=== PATIENT | female | born 1950 | race Asian ===

== ENCOUNTER 2019-04-17 14:17 | Emergency (ER) | payer MEDICARE, OTHER ==
[~2019-04-17] VITALS: Ht 152.4 cm; Wt 56.7 kg
[2019-04-17 14:21] VITALS: BP 129/76
[2019-04-17] MEDS ORDERED: IBUPROFEN600 MG ORAL (14:57)
[2019-04-17] MEDS ORDERED: NEURONTIN400 MG ORAL (14:57)
[2019-04-17] MEDS ORDERED: VALACYCLOVIR500 MG ORAL (14:57)
[2019-04-17] MEDS: valACYclovir HCL 500mg tab ORAL ONE ×2 (15:05)
[2019-04-17 15:08] VITALS: BP 129/76
--- NOTE | 2019-04-17 19:44 | Emergency Room Report ---
History of Present Illness General Chief Complaint: Pain Source: Patient Present Illness HPI Patient presents with complaints of pain to her left lower leg Complains of pain at different areas involving the calf area upper thigh Denies any fevers or chills denies any trauma denies any abdominal pain The pain is sharp and tingling in nature Denies any recent travel patient had been doing acupuncture and cupping in the areas without any relief Allergies: Coded Allergies: No Known Allergies (Unverified , 04/17/19) Patient History Past Medical History: see triage record Pertinent Family History: none Now: No Reviewed Nursing Documentation: PMH: Agreed; PSxH: Agreed Nursing Documentation-PMH Past Medical History: No Stated History Hx Cardiac Problems: Yes - High cholesterol Review of Systems All Other Systems: negative except mentioned in HPI Physical Exam Vital Signs Date Time Temp Pulse Resp B/P (MAP) Pulse Ox O2 Delivery O2 Flow Rate FiO2 04/17/19 14:21 98.8 87 20 129/76 (93) 95 Room Air Sp02 EP Interpretation: reviewed, normal General Appearance: well appearing, no apparent distress Head: normocephalic, atraumatic Eyes: bilateral eye PERRL, bilateral eye EOMI ENT: normal pharynx, no angioedema Neck: supple Respiratory: lungs clear Cardiovascular #1: regular rate, rhythm, no edema Gastrointestinal: non tender, soft Musculoskeletal: normal inspection Neurologic: alert, oriented x3 Psychiatric: normal inspection Skin: other - Several areas involving the left upper inner thigh area small blister formation appears to be in dermatomal fashion, secondarily there were multiple areas of small needle russell, these were apparently from acupuncture no obvious secondary cellulitic findings no obvious open wounds Lymphatic: no adenopathy Medical Decision Making Diagnostic Impression: Primary Impression: shingles ER Course The specific areas in question appeared to be consistent with shingles multiple other differentials and consideration Patient otherwise does not appear septic or toxic and will have initial conservative outpatient trial Last Vital Signs Date Time Temp Pulse Resp B/P (MAP) Pulse Ox O2 Delivery O2 Flow Rate FiO2 04/17/19 15:08 98.8 87 20 129/76 95 Room Air Status: improved Disposition: HOME, SELF-CARE Condition: Improved Scripts Ibuprofen* (MOTRIN*) 600 Mg Tablet 600 MG ORAL Q8H PRN for For Pain, #20 TAB 0 Refills Prov: Ge Dickson DO 04/17/19 Gabapentin* (NEURONTIN*) 400 Mg Capsule 400 MG ORAL THREE TIMES A DAY, #15 CAP 0 Refills Prov: Ge Dickson DO 04/17/19 Valacyclovir Hcl* (VALTREX*) 500 Mg Tablet 1000 MG ORAL TID for 7 Days, TAB Prov: Ge Dickson DO 04/17/19 Referrals: Rodrick Monk MD (PCP) Patient Instructions: Cadence, [id number] Additional Instructions: Patient is provided with the discharge instructions notified to follow up with primary doctor in the next 2-3 days otherwise return to the er with any worsening symptoms. Please note that this report is being documented using Eloqu[employer] technology. This can lead to erroneous entry secondary to incorrect interpretation by the dictating instrument. Ge Dickson DO Apr 17, 2019 19:44
== END 2019-04-17 15:08 | disposition home or self-care (01) ==
LOC: EMR 14:41
DX: B02.9 Zoster without complications (principal)
CPT/HCPCS: 99282

== ENCOUNTER 2020-02-12 15:53 | Inpatient (IN) | payer MEDICARE, OTHER ==
[~2020-02-12] VITALS: Ht 154.9 cm; Wt 65.8 kg
[~2020-02-12 15:53] MED LIST: IBUPROFEN600 MG ORAL; NEURONTIN400 MG ORAL; VALACYCLOVIR500 MG ORAL
[2020-02-12 16:10] VITALS: BP 132/74
--- NOTE | 2020-02-12 16:37 | Emergency Room Report ---
History of Present Illness General Chief Complaint: Chest Pain Source: Patient Present Illness HPI Disclaimer: Please note that this report is being documented using Kanjoy[employer] technology. This can lead to erroneous entry secondary to incorrect interpretation by the dictating instrument. HPI: 69-year-old female history of prediabetes presents for evaluation of chest pain. Symptoms have been intermittent for the past 7 days. Cannot recall specific injury but she is complaining of pain in the right lower chest wall. Pain is exacerbated by standing up from a seated position and relieved by laying down. Denies associated shortness of breath but reports fatigue and feels that her legs are heavy. No known history of CHF or other cardiac disease. Non-smoker. Currently her pain is 1/10 but is worse when the chest wall is palpated. Is not exacerbated with bending or twisting motion. Patient was sent over by her PMD after an outpatient visit today. She denies abdominal pain, nausea, vomiting, diarrhea, dysuria, hematuria, problems with her liver or kidney in the past. PMH: Prediabetes PSH: Cholecystectomy Allergies: None reported Social Hx: None reported Allergies: Coded Allergies: No Known Allergies (Unverified , 04/17/19) COVID-19 Screening Contact w/high risk pt: No Recent Travel to affected area: No Experienced COVID-19 symptoms?: No COVID-19 Testing performed CLASSIFIED AD CLERK: No Nursing Documentation-PMH Past Medical History: No History, Except For Hx Cardiac Problems: Yes - High cholesterol Review of Systems All Other Systems: negative except mentioned in HPI Physical Exam Vital Signs Date Time Temp Pulse Resp B/P (MAP) Pulse Ox O2 Delivery O2 Flow Rate FiO2 02/12/20 16:08 98.4 66 16 132/74 (93) 96 Room Air General: Awake and alert, no acute distress HEENT: NC/AT. EOMI. Neck: Supple, trachea midline Chest Wall: Tender palpation in the right midaxillary line, lower ribs, no obvious deformity or palpable step-off Cardiovascular: RRR. S1 and S2 normal. No murmur appreciated Resp: Normal work of breathing. No cough, wheezing or crackles appreciated Abdomen: Abdomen is soft, nondistended. Nontender Skin: Intact. No abrasions, laceration or rash over the exposed skin MSK: Normal tone and bulk. Moving all extremities. No obvious deformity. Neuro: Awake and alert. Mentating appropriately. Medical Decision Making Diagnostic Impression: Primary Impression: Chest pain ER Course 69-year-old female presenting for evaluation of chest pain intermittently for 1 week. Differential includes was not limited to musculoskeletal chest pain, occult injury, contusion, rib fracture, bronchitis, pneumonitis, pneumonia, viral syndrome, ACS, arrhythmia, atypical chest pain, GERD, biliary colic, pyelonephritis, renal dysfunction to name a few. Will obtain broad labs, EKG, chest x-ray. She is in no discomfort at this time and resting stable vital signs. Laboratory Tests Test 02/12/20 16:45 White Blood Count 5.2 K/UL (4.8-10.8) Red Blood Count 3.64 M/UL (4.20-5.40) L Hemoglobin 11.6 G/DL (12.0-16.0) L Hematocrit 36.7 % (37.0-47.0) L Mean Corpuscular Volume 101 FL (80-99) H Mean Corpuscular Hemoglobin 31.8 PG (27.0-31.0) H Mean Corpuscular Hemoglobin Concent 31.5 G/DL (32.0-36.0) L Red Cell Distribution Width 12.6 % (11.6-14.8) Platelet Count 192 K/UL (150-450) Mean Platelet Volume 7.8 FL (6.5-10.1) Neutrophils (%) (Auto) 57.9 % (45.0-75.0) Lymphocytes (%) (Auto) 34.3 % (20.0-45.0) Monocytes (%) (Auto) 5.4 % (1.0-10.0) Eosinophils (%) (Auto) 1.4 % (0.0-3.0) Basophils (%) (Auto) 1.0 % (0.0-2.0) Urine Color Pale yellow Urine Appearance Clear Urine pH 5 (4.5-8.0) Urine Specific [place] 1.015 (1.005-1.035) Urine Protein Negative (NEGATIVE) Urine Glucose (UA) Negative (NEGATIVE) Urine Ketones Negative (NEGATIVE) Urine Blood Negative (NEGATIVE) Urine Nitrite Negative (NEGATIVE) Urine Bilirubin Negative (NEGATIVE) Urine Urobilinogen Normal MG/DL (0.0-1.0) Urine Leukocyte Esterase Negative (NEGATIVE) Sodium Level 144 MMOL/L (136-145) Potassium Level 3.6 MMOL/L (3.5-5.1) Chloride Level 107 MMOL/L (98-107) Carbon Dioxide Level 23 MMOL/L (21-32) Anion Gap 14 mmol/L (5-15) Blood Urea Nitrogen 24 mg/dL (7-18) H Creatinine 0.7 MG/DL (0.55-1.30) Estimated Glomerular Filtration Rate > 60 mL/min (>60) Glucose Level 103 MG/DL (74-106) Calcium Level 8.2 MG/DL (8.5-10.1) L Total Bilirubin 0.3 MG/DL (0.2-1.0) Aspartate Amino Transferase (AST) 35 U/L (15-37) Alanine Aminotransferase (ALT) 40 U/L (12-78) Alkaline Phosphatase 66 U/L (46-116) Troponin I 0.002 ng/mL (0.000-0.056) Pro-B-Type Natriuretic Peptide 112 pg/mL (0-125) Total Protein 7.0 G/DL (6.4-8.2) Albumin 3.5 G/DL (3.4-5.0) Globulin 3.5 g/dL Albumin/Globulin Ratio 1.0 (1.0-2.7) EKG Diagnostic Results EKG Time: 16:40 Rate: bradycardiac Rhythm: NSR ST Segments: no acute changes Other Impression Sinus rhythm, bradycardic rate, normal axis, normal intervals, no ST segment changes. Rhythm Strip Diag. Results Rhythm Strip Time: 16:40 EP Interpretation: yes Rate: 50s Rhythm: NSR, no PVC's, no ectopy Chest X-Ray Diagnostic Results Chest X-Ray Diagnostic Results : Chest X-Ray Ordered: Yes # of Views/Limited/Complete: 1 View Indication: Chest Pain EP Interpretation: Yes Interpretation: no consolidation, no effusion, no pneumothorax, no acute cardiopulmonary disease Impression: No acute disease Electronically Signed by: Electronically signed by Dr. Luca Gutiérrez Reevaluation Time: 20:01 Last Vital Signs Date Time Temp Pulse Resp B/P (MAP) Pulse Ox O2 Delivery O2 Flow Rate FiO2 02/12/20 16:08 98.4 66 16 132/74 (93) 96 Room Air Reevaluation Impression EKG is nonischemic, chest x-ray does not show obvious infiltrate. Labs including initial troponin are negative. Patient remains chest pain-free. Discussed with the patient's primary doctor who would like her admitted for cardiac work-up. Per PMD request the patient will be admitted to Dr. Ramirez who has accepted. Disposition: ADMITTED INPATIENT Condition: Serious Luca Gutiérrez MD February 12, 2020 16:37
--- NOTE | 2020-02-12 16:57 | Diagnostic Imaging Report ---
Indication: Chest pain Technique: XRAY Chest 1v Comparison: None Findings: Heart size within the upper limits for normal. Mediastinal contours are sharp. There is no focal airspace consolidation. No pleural effusion, pneumothorax or radiographic evidence suggest pulmonary edema. There are degenerative changes in the spine. No acute osseous abnormality. Surgical clips noted in the right upper quadrant. Impression: No radiographic evidence of acute cardiopulmonary disease.
[2020-02-12 17:08] LABS: EOSINOPHILS % (AUTO) 1.4 % (0.0-3.0); HEMATOCRIT 36.7 % (37.0-47.0); HEMOGLOBIN 11.6 G/DL (12.0-16.0); LYMPHOCYTES % (AUTO) 34.3 % (20.0-45.0); MEAN CORPUSCULAR VOLUME 101 FL (80-99); MONOCYTES % (AUTO) 5.4 % (1.0-10.0); NEUTROPHILS % (AUTO) 57.9 % (45.0-75.0); PLATELET COUNT 192 K/UL (150-450); RED BLOOD COUNT 3.64 M/UL (4.20-5.40); RED CELL DISTRIBUTION WIDTH 12.6 % (11.6-14.8); WHITE BLOOD COUNT 5.2 K/UL (4.8-10.8)
[2020-02-12 17:17] LABS: APPEARANCE,URINE CLEAR; BILIRUBIN, URINE NEGATIVE (NEGATIVE); COLOR,URINE PALE YELLOW; GLUCOSE, URINE (UA) NEGATIVE (NEGATIVE); KETONES,URINE NEGATIVE (NEGATIVE); LEUKOCYTE ESTERASE ,URINE NEGATIVE (NEGATIVE); NITRITE,URINE NEGATIVE (NEGATIVE); PH,URINE 5 (4.5-8.0); PROTEIN,URINE NEGATIVE (NEGATIVE); UROBILINOGEN,URINE NORMAL MG/DL (0.0-1.0)
[2020-02-12 17:19] LABS: ANION GAP 14 mmol/L (5-15); BLOOD UREA NITROGEN 24 mg/dL (7-18); CALCIUM 8.2 MG/DL (8.5-10.1); CARBON DIOXIDE 23 MMOL/L (21-32); CHLORIDE 107 MMOL/L (98-107); CREATININE 0.7 MG/DL (0.55-1.30); POTASSIUM 3.6 MMOL/L (3.5-5.1); SODIUM 144 MMOL/L (136-145)
[2020-02-12 17:31] LABS: ALANINE AMINOTRANSFERASE 40 U/L (12-78); ALBUMIN 3.5 G/DL (3.4-5.0); ALKALINE PHOSPHATASE 66 U/L (46-116); ASPARTATE AMINO TRANSFERASE 35 U/L (15-37); BILIRUBIN,TOTAL 0.3 MG/DL (0.2-1.0)
[2020-02-12 18:00] VITALS: BP 124/61
[2020-02-12 21:50] VITALS: BP 115/69
[2020-02-12] MEDS ORDERED: Zolpidem 5mg tab ORAL PRN (23:30)
[2020-02-13] VITALS: BP 109/56
[2020-02-13 04:00] VITALS: BP 110/61
[2020-02-13 06:07] LABS: BASOPHILS % (AUTO) 0.9 % (0.0-2.0); EOSINOPHILS % (AUTO) 2.3 % (0.0-3.0); HEMATOCRIT 34.2 % (37.0-47.0); HEMOGLOBIN 11.8 G/DL (12.0-16.0); LYMPHOCYTES % (AUTO) 43.7 % (20.0-45.0); MEAN CORPUSCULAR VOLUME 93 FL (80-99); MONOCYTES % (AUTO) 7.5 % (1.0-10.0); NEUTROPHILS % (AUTO) 45.6 % (45.0-75.0); PLATELET COUNT 208 K/UL (150-450); RED BLOOD COUNT 3.66 M/UL (4.20-5.40); RED CELL DISTRIBUTION WIDTH 11.1 % (11.6-14.8); WHITE BLOOD COUNT 3.7 K/UL (4.8-10.8)
[2020-02-13 06:13] LABS: ANION GAP 6 mmol/L (5-15); BLOOD UREA NITROGEN 18 mg/dL (7-18); CALCIUM 8.3 MG/DL (8.5-10.1); CARBON DIOXIDE 28 MMOL/L (21-32); CHLORIDE 110 MMOL/L (98-107); CREATININE 0.7 MG/DL (0.55-1.30); POTASSIUM 3.7 MMOL/L (3.5-5.1); SODIUM 144 MMOL/L (136-145)
[2020-02-13 08:00] VITALS: BP 112/71
[2020-02-13] MEDS: Enoxaparin 40mg Inj SUBQ SCH ×2 (09:11→09:12)
[2020-02-13 12:00] VITALS: BP 111/71
--- NOTE | 2020-02-13 13:14 | History and Physical Report ---
DATE OF ADMISSION: 02/12/2020 DATE AND TIME SEEN: 02/13/2020 at 9 a.m. CONSULTANTS: 1. Rodrick Monk MD. 2. Nick Spears MD. CHIEF COMPLAINT: Chest pain. BRIEF HISTORY: This is a 69-year-old female, who presented to [facility] last night with history of intermittent chest pain for seven days. No shortness of breath. No nausea. No loss of consciousness. The patient was diagnosed with the above, admitted to telemetry for further care. Currently, sleeping in bed, not talking much. REVIEW OF SYSTEMS: Unavailable. PAST MEDICAL HISTORY: From chart, has prediabetes. PAST SURGICAL HISTORY: Cholecystectomy. MEDICATIONS: Include enoxaparin, Zofran, and Tylenol. ALLERGIES: Denies. SOCIAL HISTORY: No smoking. No alcohol. No intravenous drug abuse. FAMILY HISTORY: Noncontributory. PHYSICAL EXAMINATION: GENERAL: Sleeping in bed, not talking much. VITAL SIGNS: Temperature 96, pulse 54, respirations 16, blood pressure 112/71. CARDIOVASCULAR: Distant without murmur. LUNGS: Distant and clear. ABDOMEN: Bowel sound positive. Nontender. Nondistended. EXTREMITIES: No cyanosis, clubbing or edema. NEUROLOGIC: The patient is sleeping in bed currently. LABORATORY AND DIAGNOSTIC DATA: Labs at this time show white count 3.7, hemoglobin and hematocrit 11/34, platelets 208. BMP shows chloride 110, calcium 8.3. Troponin 0.002 and 0.000. Urinalysis is negative. ASSESSMENT: 1. Chest pain. 2. Anemia. 3. Leukopenia. 4. Prediabetes. PLAN: Cardiology followup. Troponin q.8 h. x3. EKG in the morning. Pain control. Blood sugar control. Hematology followup. Dietary followup. CBC and BMP in the morning. PT and dietary evaluation. Matthew Ramirez D.O. DR: GADIEL JOB#: [id number] CC:
[2020-02-13 16:00] VITALS: BP 101/63
--- NOTE | 2020-02-13 16:17 | Cardiology Progress Note ---
Assessment/Plan Assessment/Plan The patient is seen and examined, full consult note is dictated. Objective Last 24 Hour Vital Signs Date Time Temp Pulse Resp B/P (MAP) Pulse Ox O2 Delivery O2 Flow Rate FiO2 02/13/20 12:00 61 02/13/20 12:00 99.5 65 18 111/71 (84) 95 02/13/20 09:00 Room Air 02/13/20 08:00 96.3 54 16 112/71 (85) 95 02/13/20 08:00 66 02/13/20 04:00 53 02/13/20 04:00 97.6 61 16 110/61 (77) 96 02/13/20 00:00 51 02/13/20 00:00 97.3 58 16 109/56 (73) 95 02/12/20 22:13 Room Air 02/12/20 21:50 97.6 58 16 115/69 (84) 98 02/12/20 21:45 98.4 60 14 124/61 98 Room Air 02/12/20 18:00 98.4 60 14 124/61 98 Room Air Intake and Output 02/12/20 02/13/20 19:00 07:00 Intake Total 600 ml Balance 600 ml Intake Oral 600 ml # Voids 2 Laboratory Tests Test 02/12/20 16:45 02/13/20 05:00 02/13/20 10:05 02/13/20 14:10 White Blood Count 5.2 K/UL (4.8-10.8) 3.7 K/UL (4.8-10.8) L Red Blood Count 3.64 M/UL (4.20-5.40) L 3.66 M/UL (4.20-5.40) L Hemoglobin 11.6 G/DL (12.0-16.0) L 11.8 G/DL (12.0-16.0) L Hematocrit 36.7 % (37.0-47.0) L 34.2 % (37.0-47.0) L Mean Corpuscular Volume 101 FL (80-99) H 93 FL (80-99) Mean Corpuscular Hemoglobin 31.8 PG (27.0-31.0) H 32.3 PG (27.0-31.0) H Mean Corpuscular Hemoglobin Concent 31.5 G/DL (32.0-36.0) L 34.6 G/DL (32.0-36.0) Red Cell Distribution Width 12.6 % (11.6-14.8) 11.1 % (11.6-14.8) L Platelet Count 192 K/UL (150-450) 208 K/UL (150-450) Mean Platelet Volume 7.8 FL (6.5-10.1) 6.7 FL (6.5-10.1) Neutrophils (%) (Auto) 57.9 % (45.0-75.0) 45.6 % (45.0-75.0) Lymphocytes (%) (Auto) 34.3 % (20.0-45.0) 43.7 % (20.0-45.0) Monocytes (%) (Auto) 5.4 % (1.0-10.0) 7.5 % (1.0-10.0) Eosinophils (%) (Auto) 1.4 % (0.0-3.0) 2.3 % (0.0-3.0) Basophils (%) (Auto) 1.0 % (0.0-2.0) 0.9 % (0.0-2.0) Urine Color Pale yellow Urine Appearance Clear Urine pH 5 (4.5-8.0) Urine Specific [place] 1.015 (1.005-1.035) Urine Protein Negative (NEGATIVE) Urine Glucose (UA) Negative (NEGATIVE) Urine Ketones Negative (NEGATIVE) Urine Blood Negative (NEGATIVE) Urine Nitrite Negative (NEGATIVE) Urine Bilirubin Negative (NEGATIVE) Urine Urobilinogen Normal MG/DL (0.0-1.0) Urine Leukocyte Esterase Negative (NEGATIVE) Sodium Level 144 MMOL/L (136-145) 144 MMOL/L (136-145) Potassium Level 3.6 MMOL/L (3.5-5.1) 3.7 MMOL/L (3.5-5.1) Chloride Level 107 MMOL/L (98-107) 110 MMOL/L (98-107) H Carbon Dioxide Level 23 MMOL/L (21-32) 28 MMOL/L (21-32) Anion Gap 14 mmol/L (5-15) 6 mmol/L (5-15) Blood Urea Nitrogen 24 mg/dL (7-18) H 18 mg/dL (7-18) Creatinine 0.7 MG/DL (0.55-1.30) 0.7 MG/DL (0.55-1.30) Estimat Glomerular Filtration Rate > 60 mL/min (>60) > 60 mL/min (>60) Glucose Level 103 MG/DL (74-106) 96 MG/DL (74-106) Calcium Level 8.2 MG/DL (8.5-10.1) L 8.3 MG/DL (8.5-10.1) L Total Bilirubin 0.3 MG/DL (0.2-1.0) Aspartate Amino Transf (AST/SGOT) 35 U/L (15-37) Alanine Aminotransferase (ALT/SGPT) 40 U/L (12-78) Alkaline Phosphatase 66 U/L (46-116) Troponin I 0.002 ng/mL (0.000-0.056) 0.000 ng/mL (0.000-0.056) 0.000 ng/mL (0.000-0.056) 0.000 ng/mL (0.000-0.056) Pro-B-Type Natriuretic Peptide 112 pg/mL (0-125) Total Protein 7.0 G/DL (6.4-8.2) Albumin 3.5 G/DL (3.4-5.0) Globulin 3.5 g/dL Albumin/Globulin Ratio 1.0 (1.0-2.7) Nick Spears MD February 13, 2020 16:17
[2020-02-13 20:00] VITALS: BP 104/66
[2020-02-14 04:00] VITALS: BP 101/59
[2020-02-14 08:00] VITALS: BP 112/74
[2020-02-14 08:53] LABS: BASOPHILS % (AUTO) 0.8 % (0.0-2.0); EOSINOPHILS % (AUTO) 2.5 % (0.0-3.0); HEMATOCRIT 36.3 % (37.0-47.0); HEMOGLOBIN 12.6 G/DL (12.0-16.0); LYMPHOCYTES % (AUTO) 43.8 % (20.0-45.0); MEAN CORPUSCULAR VOLUME 93 FL (80-99); MONOCYTES % (AUTO) 7.3 % (1.0-10.0); NEUTROPHILS % (AUTO) 45.5 % (45.0-75.0); PLATELET COUNT 213 K/UL (150-450); RED CELL DISTRIBUTION WIDTH 11.3 % (11.6-14.8); WHITE BLOOD COUNT 3.7 K/UL (4.8-10.8)
[2020-02-14] MEDS ORDERED: Enoxaparin 40mg Inj SUBQ SCH (09:00)
[2020-02-14 09:07] LABS: ANION GAP 10 mmol/L (5-15); BLOOD UREA NITROGEN 23 mg/dL (7-18); CALCIUM 8.6 MG/DL (8.5-10.1); CARBON DIOXIDE 26 MMOL/L (21-32); CHLORIDE 109 MMOL/L (98-107); CREATININE 0.7 MG/DL (0.55-1.30); POTASSIUM 3.9 MMOL/L (3.5-5.1); SODIUM 145 MMOL/L (136-145)
--- NOTE | 2020-02-14 09:52 | General Progress Note ---
Assessment/Plan Problem List: (1) Anemia ICD Codes: D64.9 - Anemia, unspecified SNOMED: 861639577 (2) Leukopenia ICD Codes: D72.819 - Decreased white blood cell count, unspecified SNOMED: 62122251, 010825166 (3) Chest pain ICD Codes: R07.9 - Chest pain, unspecified SNOMED: 65698017 Assessment/Plan: pt diet eval cardio heme f/u cbc bmp am dc plan w hh if all clear Subjective Constitutional: Reports: weakness Allergies: Coded Allergies: No Known Allergies (Unverified , 04/17/19) All Systems: reviewed and negative except above Subjective sleepy calm Objective Last 24 Hour Vital Signs Date Time Temp Pulse Resp B/P (MAP) Pulse Ox O2 Delivery O2 Flow Rate FiO2 02/14/20 09:00 Room Air 02/14/20 08:00 98.2 59 15 112/74 (87) 96 02/14/20 08:00 60 02/14/20 04:00 97.3 58 15 101/59 (73) 97 02/14/20 04:00 67 02/14/20 00:00 52 02/13/20 21:00 Room Air 02/13/20 20:00 98.3 56 16 104/66 (79) 98 02/13/20 16:00 56 02/13/20 16:00 97.5 60 18 101/63 (76) 98 02/13/20 12:00 61 02/13/20 12:00 99.5 65 18 111/71 (84) 95 Intake and Output 02/13/20 02/14/20 19:00 07:00 Intake Total 398 ml 450 ml Balance 398 ml 450 ml Intake Oral 398 ml 450 ml # Voids 2 Laboratory Tests 02/13/20 10:05: Troponin I 0.000 02/13/20 14:10: Troponin I 0.000 02/14/20 06:55: White Blood Count 3.7L, Red Blood Count 3.90L, Hemoglobin 12.6, Hematocrit 36.3L , Mean Corpuscular Volume 93, Mean Corpuscular Hemoglobin 32.3H, Mean Corpuscular Hemoglobin Concent 34.7, Red Cell Distribution Width 11.3L, Platelet Count 213, Mean Platelet Volume 6.4L, Neutrophils (%) (Auto) 45.5, Lymphocytes (%) (Auto) 43.8, Monocytes (%) (Auto) 7.3, Eosinophils (%) (Auto) 2.5, Basophils (%) (Auto) 0.8, Sodium Level 145, Potassium Level 3.9, Chloride Level 109H, Carbon Dioxide Level 26, Anion Gap 10, Blood Urea Nitrogen 23H, Creatinine 0.7, Estimat Glomerular Filtration Rate > 60, Glucose Level 88, Calcium Level 8.6 Height (Feet): 5 Height (Inches): 1.00 Weight (Pounds): 145 General Appearance: lethargic EENT: normal ENT inspection Neck: normal alignment Cardiovascular: normal peripheral pulses, normal rate, regular rhythm Respiratory/Chest: chest wall non-tender, lungs clear, normal breath sounds Abdomen: normal bowel sounds, non tender, soft Extremities: normal inspection Edema: no edema noted Arm (L), no edema noted Arm (R), no edema noted Leg (L), no edema noted Leg (R), no edema noted Pedal (L), no edema noted Pedal (R), no edema noted Generalized Neurologic: motor weakness Skin: normal pigmentation, warm/dry Matthew Ramirez DO February 14, 2020 09:52
[2020-02-14 12:00] VITALS: BP 103/66
--- NOTE | 2020-02-14 13:04 | Consultation ---
History of Present Illness General Chief Complaint: Chest Pain Present Illness Allergies: Coded Allergies: No Known Allergies (Unverified , 04/17/19) Medication History Scheduled Gabapentin* (Neurontin*), 400 MG ORAL THREE TIMES A DAY Scheduled PRN Ibuprofen (Motrin), 600 MG ORAL Q8H PRN for For Pain Discontinued Medications Valacyclovir Hcl* (Valtrex*), 1,000 MG ORAL TID Discontinued Reason: Therapy completed Patient History Healthcare decision maker N Resuscitation status Advanced Directive on File Physical Exam Last 24 Hour Vital Signs Date Time Temp Pulse Resp B/P (MAP) Pulse Ox O2 Delivery O2 Flow Rate FiO2 02/14/20 12:00 65 02/14/20 12:00 97.9 56 18 103/66 (78) 95 02/14/20 09:00 Room Air 02/14/20 08:00 98.2 59 15 112/74 (87) 96 02/14/20 08:00 60 02/14/20 04:00 97.3 58 15 101/59 (73) 97 02/14/20 04:00 67 02/14/20 00:00 52 02/13/20 21:00 Room Air 02/13/20 20:00 98.3 56 16 104/66 (79) 98 02/13/20 16:00 56 02/13/20 16:00 97.5 60 18 101/63 (76) 98 Intake and Output 02/13/20 02/14/20 19:00 07:00 Intake Total 398 ml 450 ml Balance 398 ml 450 ml Intake Oral 398 ml 450 ml # Voids 2 Laboratory Tests Test 02/13/20 14:10 02/14/20 06:55 Troponin I 0.000 ng/mL (0.000-0.056) White Blood Count 3.7 K/UL (4.8-10.8) L Red Blood Count 3.90 M/UL (4.20-5.40) L Hemoglobin 12.6 G/DL (12.0-16.0) Hematocrit 36.3 % (37.0-47.0) L Mean Corpuscular Volume 93 FL (80-99) Mean Corpuscular Hemoglobin 32.3 PG (27.0-31.0) H Mean Corpuscular Hemoglobin Concent 34.7 G/DL (32.0-36.0) Red Cell Distribution Width 11.3 % (11.6-14.8) L Platelet Count 213 K/UL (150-450) Mean Platelet Volume 6.4 FL (6.5-10.1) L Neutrophils (%) (Auto) 45.5 % (45.0-75.0) Lymphocytes (%) (Auto) 43.8 % (20.0-45.0) Monocytes (%) (Auto) 7.3 % (1.0-10.0) Eosinophils (%) (Auto) 2.5 % (0.0-3.0) Basophils (%) (Auto) 0.8 % (0.0-2.0) Sodium Level 145 MMOL/L (136-145) Potassium Level 3.9 MMOL/L (3.5-5.1) Chloride Level 109 MMOL/L (98-107) H Carbon Dioxide Level 26 MMOL/L (21-32) Anion Gap 10 mmol/L (5-15) Blood Urea Nitrogen 23 mg/dL (7-18) H Creatinine 0.7 MG/DL (0.55-1.30) Estimat Glomerular Filtration Rate > 60 mL/min (>60) Glucose Level 88 MG/DL (74-106) Calcium Level 8.6 MG/DL (8.5-10.1) Height (Feet): 5 Height (Inches): 1.00 Weight (Pounds): 145 Medications Current Medications Medications (Trade) Dose Ordered Sig/Sammi Route PRN Reason Start Time Stop Time Status Last Admin Dose Admin Acetaminophen (Tylenol) 650 mg Q4H PRN ORAL Mild Pain (Pain Scale 1-3) 02/12/20 23:30 03/13/20 23:29 Enoxaparin Sodium (Lovenox) 40 mg DAILY SUBQ 02/14/20 09:00 05/14/20 08:59 02/14/20 08:29 Zolpidem Tartrate (Ambien) 5 mg HSPRN PRN ORAL Insomnia 02/12/20 23:30 02/19/20 23:29 Assessment/Plan Assessment/Plan: Hematology Consultation REQ : Matthew Ramirez RFC: Leukopenia DOS 02/14/2020 ID 69-year-old female history of prediabetes presents for evaluation of chest pain. Symptoms have been intermittent for the past 7 days. Cannot recall specific injury but she is complaining of pain in the right lower chest wall. Pain is exacerbated by standing up from a seated position and relieved by laying down. Denies associated shortness of breath but reports fatigue and feels that her legs are heavy. No known history of CHF or other cardiac disease. Non-smoker. Currently her pain is 1/10 but is worse when the chest wall is palpated. Is not exacerbated with bending or twisting motion. Patient was sent over by her PMD after an outpatient visit today. She denies abdominal pain, nausea, vomiting, diarrhea, dysuria, hematuria, problems with her liver or kidney in the past. 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 EOMI. Neck: Supple, trachea midlines deformity or palpable step-off Cardiovascular: RRR. S1 and S2 normal. No murmur appreciated Chest Wall: Tender palpation in the right midaxillary line, lower ribs, no obviou Resp: Normal work of breathing. No cough, wheezing or crackles appreciated Abdomen: Abdomen is soft, nondistended. Nontender Skin: Intact. No abrasions, laceration or rash over the exposed skin MSK: Normal tone and bulk. Moving all extremities. No obvious deformity. Neuro: Awake and alert. Mentating appropriately. Labs noted Imaging reviewed Assessment and Recs # Leukopenia -- multiple etiologies could be related to underlying liver disease , medication-induced, infection versus viral syndrome --> peripheral smear has been ordered and does not show significant abnormalities --> Medications have been reviewed --> Continue to monitor for improvement, trend cbc --> Hep panel and HIV have been ordered --> US abd ordered to r/o cirrhosis and hepatosplenomegaly --> reverse isolation if ANC is <2000 --> Give neupogen if ANC <1000 # Anemia of chronic disease due to underlying chronic medical issues, multifactorial v Gi bleed --> Anemia workup has been ordered, rule out gi bleed --> No evidence of hemolysis is noted, peripheral smear has been reviewed. --> Hgb goal >7. Transfuse prn. --> Epogen or iron at this time is not particularly indicated --> Medications have been reviewed --> low threshold for gi evaluation in case has occult + # Chest pain --> r/o acs, trop ekg per cards --> per Dr. Spears # Insomnia --> is on zolpidem prn # Dvt ppx lovenox sq The timing of this note does not necessarily reflect the time of the patient was seen. Greatly appreciate consultation. Rodrick Monk MD February 14, 2020 13:04
--- NOTE | 2020-02-14 17:29 | Consultation ---
DATE OF CONSULTATION: 02/13/2020 CARDIOLOGY CONSULTATION CONSULTING PHYSICIAN: Nick Spears MD. REFERRING PHYSICIAN: Matthew Ramirez DO. REASON FOR CONSULTATION: Management of chest pain. HISTORY OF PRESENT ILLNESS: Patient is a very unfortunate 69-year-old female, who presents to the hospital with complaints of chest pain that has been going on intermittently for the past 7 days. Patient states that the pain is in the right lower chest and it points to an area, which is tender. The pain is exacerbated with standing up from a sitting position and relieved by laying down. Patient also states that the pain gets worse with certain movements. There is no history of shortness of breath, nausea, vomiting, or diaphoresis. The patient does not have any risk factors for coronary artery disease, except high cholesterol. She also states that she was told that she has prediabetes. She has taken ibuprofen and Neurontin at home. At the time of arrival to this facility, blood pressure was 132/74 mmHg and pulse rate was 66. 12-lead electrocardiogram was significant for sinus rhythm with no acute ischemic changes, heart rate of 58. Initial troponin level was within normal limits. PHYSICAL EXAMINATION: General: Awake and alert, no acute distress HEENT: NC/AT. EOMI. PERRLA Neck: JVP less than 5 cm, no carotid bruit, carotid upstroke 2+ B/L Chest Wall: Tender palpation in the right midaxillary line Cardiovascular: RRR. S1 and S2 normal. No murmur appreciated Resp: No wheezing or crackles appreciated Abdomen: Abdomen is soft, nondistended. Nontender, + BS Skin: Intact. No abrasions, laceration or rash over the exposed skin MSK: Normal tone and bulk. No edema, clubbing or cyanosis. Assessment/Plan: 1. Non-cardiac chest pain in view of tenderness over the right side of the chest wall, likely musculoskeletal in origin, AMI is ruled out, no ischemic changes on the ECG. Continue NSAIDs. 2D echo shows normal LV systolic and diastolic function with LVEF at 55%. 2. Hyperlipidemia. Nick Spears M.D. DR: SAL JOB#: [id number] CC: TORREY
--- NOTE | 2020-02-14 23:02 | Cardiology Progress Note ---
Assessment/Plan Assessment/Plan 1. Non-cardiac chest pain in view of tenderness over the right side of the chest wall, likely musculoskeletal in origin, AMI is ruled out, no ischemic changes on the ECG. Continue NSAIDs. 2D echo shows normal LV systolic and diastolic function with LVEF at 55%. 2. Hyperlipidemia. Subjective Subjective Sinus rhythm at rate of 65. Objective Last 24 Hour Vital Signs Date Time Temp Pulse Resp B/P (MAP) Pulse Ox O2 Delivery O2 Flow Rate FiO2 02/14/20 12:00 65 02/14/20 12:00 97.9 56 18 103/66 (78) 95 02/14/20 09:00 Room Air 02/14/20 08:00 98.2 59 15 112/74 (87) 96 02/14/20 08:00 60 02/14/20 04:00 97.3 58 15 101/59 (73) 97 02/14/20 04:00 67 02/14/20 00:00 52 Intake and Output 02/13/20 02/14/20 19:00 07:00 Intake Total 398 ml 450 ml Balance 398 ml 450 ml Intake Oral 398 ml 450 ml # Voids 2 2D Echo: LVEF 55%, Grade I LVDD, RVSP 11 mmHg Laboratory Tests Test 02/14/20 06:55 White Blood Count 3.7 K/UL (4.8-10.8) L Red Blood Count 3.90 M/UL (4.20-5.40) L Hemoglobin 12.6 G/DL (12.0-16.0) Hematocrit 36.3 % (37.0-47.0) L Mean Corpuscular Volume 93 FL (80-99) Mean Corpuscular Hemoglobin 32.3 PG (27.0-31.0) H Mean Corpuscular Hemoglobin Concent 34.7 G/DL (32.0-36.0) Red Cell Distribution Width 11.3 % (11.6-14.8) L Platelet Count 213 K/UL (150-450) Mean Platelet Volume 6.4 FL (6.5-10.1) L Neutrophils (%) (Auto) 45.5 % (45.0-75.0) Lymphocytes (%) (Auto) 43.8 % (20.0-45.0) Monocytes (%) (Auto) 7.3 % (1.0-10.0) Eosinophils (%) (Auto) 2.5 % (0.0-3.0) Basophils (%) (Auto) 0.8 % (0.0-2.0) Sodium Level 145 MMOL/L (136-145) Potassium Level 3.9 MMOL/L (3.5-5.1) Chloride Level 109 MMOL/L (98-107) H Carbon Dioxide Level 26 MMOL/L (21-32) Anion Gap 10 mmol/L (5-15) Blood Urea Nitrogen 23 mg/dL (7-18) H Creatinine 0.7 MG/DL (0.55-1.30) Estimat Glomerular Filtration Rate > 60 mL/min (>60) Glucose Level 88 MG/DL (74-106) Calcium Level 8.6 MG/DL (8.5-10.1) Objective General: Awake and alert, no acute distress HEENT: NC/AT. EOMI. PERRLA Neck: JVP less than 5 cm, no carotid bruit, carotid upstroke 2+ B/L Chest Wall: Tender palpation in the right midaxillary line Cardiovascular: RRR. S1 and S2 normal. No murmur appreciated Resp: No wheezing or crackles appreciated Abdomen: Abdomen is soft, nondistended. Nontender, + BS Skin: Intact. No abrasions, laceration or rash over the exposed skin MSK: Normal tone and bulk. No edema, clubbing or cyanosis. Nick Spears MD February 14, 2020 23:02
--- NOTE | 2020-02-15 17:22 | Discharge Summary ---
Discharge Summary Discharge Summary _ DATE OF ADMISSION: 02/12/2020 DATE OF DISCHARGE: 02/14/2020 DISCHARGED BY: REASON FOR ADMISSION: 69 years old female with past medical history of prediabetes, hyperlipidemia, presented to emergency room for evaluation of chest pain. Patient reported intermittent chest pain for the past 7 days. She denied specific injury. Pain reported in the right lower chest, exacerbated by standing up from a sitting position and relieved by lying down. No associated shortness of breath. Patient reported fatigue and felt like her legs were heavy. No known history of CHF or other cardiac condition. Patient was non-smoker. Upon evaluation vital signs were stable. Patient was afebrile. Pulse oximetry was stable on room air. Laboratory work-up revealed no leukocytosis, stable hemoglobin, hematocrit and platelet count. No lymphopenia. Urinalysis revealed no evidence of urinary tract infection. Stable electrolytes. BUN 24, creatinine 0.7. Glucose 103. Stable LFT. Troponin negative, pro BNP 112. EKG revealed sinus bradycardia with a heart rate in high 50th. Chest x-ray demonstrated no radiographic evidence of acute cardiopulmonary disease. Patient subsequently admitted with chest pain, rule out acute coronary syndrome. CONSULTANTS: life cycle assessment analyst Dr. Camp manager community/oncologist Dr. Monk [facility] COURSE: Patient admitted to telemetry floor. Cop Examiner followed. Serial troponin were negative. EKG revealed no acute ischemic changes. Patient was ruled out for acute myocardial infarction. Echocardiogram demonstrated preserved ejection fraction of 55%. No evidence of wall motion abnormality. No evidence of left ventricular hypertrophy. Right ventricular systolic pressure of 11. DVT prophylaxis provided. Per cardiology, chest pain was noncardiac and in view of tenderness over the right side of the chest wall, likely of musculoskeletal origin. Recommended nonsteroid anti-inflammatory medication for pain control. Patient was counseled on low-fat low-cholesterol no concentrated sweet diet. Blood sugar remained stable. Patient noted to have a mild anemia. Initially hemoglobin 11.6, hematocrit 36.7. Counts were closely monitored. Prior to discharge hemoglobin 12.6, hematocrit 36.3. Noted leukopenia with WBC 3.7. Fall precautions maintained. Patient was stable for discharge home with home health services. Outpatient work-up for leukopenia. FINAL DIAGNOSES: Noncardiac chest pain, likely musculoskeletal Hyperlipidemia, Mild anemia -resolved Leukopenia DISCHARGE MEDICATIONS: See Medication Reconciliation list. DISCHARGE INSTRUCTIONS: Patient was discharged home with home health services. Follow up with primary care provider in one week. I have been assigned to dictate discharge summary for this account. I was not involved in the patient's management. Yanely Larose NP February 15, 2020 17:22
== END 2020-02-14 15:14 | disposition home health service (06) | DRG 313 ==
LOC: EMR 16:46 → EDBEDREQ 20:03 → 2E 20:30 → EDBEDREQ 20:51 → 2E 02-13 22:07
DX: R07.89 Other chest pain (principal); R73.03 Prediabetes; Z90.49 Acquired absence of other specified parts of digestive tract; E78.5 Hyperlipidemia, unspecified; D63.8 Anemia in other chronic diseases classified elsewhere; G47.00 Insomnia, unspecified
CPT/HCPCS: 36415; 71045; 80048; 80053; 81003; 83880; 84484; 85025; 93005; 93306; 99285